=== PATIENT | female | born 1985 | race Caucasian/White ===

== ENCOUNTER 2019-07-21 11:39 | Emergency (ER) | payer MEDICAID ==
[~2019-07-21] VITALS: Ht 162.6 cm; Wt 65.8 kg
[2019-07-21 13:10] LABS: Basophils # (auto) 0 uL; Eosinophils # (auto) 0 uL; Eosinophils % (auto) 0.7 % (0.0-7.0); Lymphocytes # (auto) 0.6 uL; Monocytes # (auto) 0.5 uL
[2019-07-21 13:11] LABS: Basophils % (auto) 0.6 % (0.0-2.0); Hematocrit 37.4 % (36.0-46.0); Hemoglobin 12.5 g/dL (12.2-16.2); Lymphocytes % (auto) 11.1 % (10.0-50.0); Mean Corpuscular Hemoglobin 34.1 pg (28.0-32.0); Mean Corpuscular Hgb Conc. 33.6 g/dL (32.0-36.0); Mean Corpuscular Volume 101.5 fL (80.0-100.0); Monocytes % (auto) 10.4 % (0.0-12.0); Neutrophils # (auto) 4.1 uL; Neutrophils % (auto) 77.2 % (37.0-80.0); Platelet Count (auto) 185 10^3/uL (140-450); Red Blood Cells 3.68 10^6/uL (4.0-5.20); Red Cell Distribution Width 13.1 % (11.8-14.3); White Blood Cell 5.3 10^3/uL (4.4-10.8)
[2019-07-21 13:50] LABS: Albumin 4.4 g/dL (3.4-5.0); Potassium 3.6 mmol/L (3.5-5.1)
[2019-07-21 13:53] LABS: BUN/Creatinine Ratio 9.7; Bilirubin, Total 0.8 mg/dL (0.2-1.0); Total Protein 7.6 g/dL (6.4-8.2)
[2019-07-21 14:28] LABS: Urine Blood 3+ /uL (Negative)
[2019-07-21 14:32] LABS: Urine WBC 3050 /hpf (0 - 5)
[2019-07-21 14:34] LABS: Urine Bacteria MOD /hpf (None Seen)
[2019-07-21 14:46] LABS: Urine Specific Gravity 1.027 (1.001-1.035)
[2019-07-21 14:52] VITALS: BP 153/99
== END 2019-07-21 14:59 | disposition home or self-care (01) ==
LOC: ER 11:39
DX: N39.0 Urinary tract infection, site not specified (principal)
CPT/HCPCS: 36415; 74176; 80053; 81001; 85025